=== PATIENT | female | born 1955 | race Caucasian/White ===

== ENCOUNTER → 2016-10-02 | Outpatient (CLI) | payer MEDICARE, OTHER ==
[~2016-10-02] MED LIST: ALBUTEROL0.09 MG/A4 IH; ALBUTEROL0.83 MG/ML IH; ALLEGRA 180MG180 MG PO; ALLEGRA ALLERG180 MG PO; ASPIRIN E.C. 8181 M1 PO; ASPIRIN E.C. 8181 MG PO; ATIVAN 1MG T1 MG/TAB PO; ATIVAN1 MG PO; BENADRYL E2.5 MG/1 M PO; BENADRYL25 M2 PO; CEFACLOR500 M2 PO; COZAAR100 MG PO; COZAAR50 MG PO; DEMADEX 20MG20 M1 PO; DEMADEX 20MG20 MG PO; DESYREL 50MG50 MG PO; DICLOFENAC SOD50 MG PO; DILAUDID 2MG TAB2 MG PO; DIURIL250 MG PO; DULCOLAX STOOL100 MG PO; EFFEXOR XR75 MG/CAP PO; EFFEXOR100 MG PO; GABAPENTIN300 M1 PO; GLIPIZIDE5 MG PO; GLUCOPHAGE1000 MG PO; GLUCOPHAGE500 MG/TAB PO; GRALISE PO; INDERAL 10MG10 MG PO; JANUVIA 100MG100 MG PO; KLONOPIN 1MG1 MG PO; LAMICTAL XR100 MG PO; LAMICTAL150 MG PO; LAMICTAL200 MG PO; LIP PO; LIPITOR 80MG80 MG PO; LIPITOR PO; LORTAB 7.5/5001 TAB PO; MAG-OX 400400 MG PO; MAGNESIUM ELEM300 MG PO; METFORMIN ER500 MG PO; MILK OF MA400 MG/5 M PO; MOBIC15 MG PO; MOTRIN 800800 MG/TAB PO; MULTIPLE VITAMI1 CAP PO; NEURONTIN300 MG/CAP PO; NEXIUM 40MG40 MG PO; NORCO 325 MG-101 TAB PO; NORCO 325 MG-7.1 TAB PO; NORTHYX5 MG PO; ONGLYZA5 MG PO; PRISTIQ 50 MG T50 MG PO; REGLAN 5MG T5 MG/TAB PO; SINGULAIR 110 MG/TAB PO; SYNTHROID 0.10.15 MG PO; SYNTHROID0.1 MG/TAB PO; TAPAZOLE5 MG PO; TOPAMAX 100MG100 M1 PO; TOPAMAX 25MG25 M1 PO; TRAZADONE HYDR100 MG PO; TYLENOL 500MG500 MG PO; ULTRAM50 MG PO; VERAPAMIL PO; VOLTAREN 50MG T50 MG PO; VOLTAREN-XR100 MG PO; XANAX 0.5MG0.5 MG PO; ZANTAC 150MG T150 MG PO; ZETIA 10MG TAB10 MG PO; ZETIA10 MG PO; ZYRTEC 10MG10 MG PO; [UNRECOGNIZED DRUG - OTHER] PO
== END ==
LOC: BHSO 13:04
DX: F33.1 Major depressive disorder, recurrent, moderate (principal)

== ENCOUNTER → 2017-01-16 | Outpatient (CLI) | payer MEDICARE, OTHER | LOC: BHSO 14:35 | DX: F31.74 Bipolar disorder, in full remission, most recent episode manic (principal) ==

== ENCOUNTER → 2017-05-15 | Outpatient (CLI) | payer MEDICARE, OTHER | LOC: BHSO 15:00 | DX: F41.1 Generalized anxiety disorder (principal) ==

== ENCOUNTER → 2017-07-09 | Outpatient (CLI) | payer MEDICARE, OTHER | LOC: BHSO 14:49 | DX: F41.1 Generalized anxiety disorder (principal) ==

== ENCOUNTER 2017-08-24 12:10 | Emergency (ER) | payer MEDICARE, OTHER ==
[~2017-08-24] VITALS: Ht 162.6 cm; Wt 114.0 kg
[2017-08-24 12:14] VITALS: TEMP 98.7
[2017-08-24 12:44] LABS: BASO # 0.1 (0.0-0.2); EOS # 0.2 (0.0-0.7); EOS % 4.7 % (0-4.0); GRAN # 2.3 (1.4-6.5); GRAN % 45.8 % (42.2-75.2); HEMATOCRIT 43.5 % (37.0-47.0); HEMOGLOBIN 13.8 g/dl (12.5-16.0); LYMPH # 1.8 (1.2-3.4); LYMPH % 36.1 % (20.0-51.0); MEAN CELL VOLUME 93 fl (80.0-100.0); MEAN CORPUSCULAR HEMOGLOBIN 29 pg (27.0-31.0); MEAN CORPUSCULAR HGB CONC 32 g/dl (33.0-37.0); MONO # 0.6 (0.1-0.6); MONO % 12.2 % (1.7-9.3); PLATELET COUNT 176 K/mm3 (130-400); REDCELL DISTRIBUTION WIDTH-CV 14.3 % (11.5-14.5)
[2017-08-24 12:56] LABS: ALANINE AMINOTRANSFERASE 32 U/L (9-52); ALBUMIN 4.1 gm/dL (3.5-5.0); ALKALINE PHOSPHATASE 119 U/L (50-136); ANION GAP 10 mmol/L (7-16); AST,SGOT 26 U/L (15-37); BILIRUBIN,TOTAL 0.3 mg/dL (0.0-1.0); BLOOD UREA NITROGEN 18 mg/dL (7-17); CALCIUM 9.4 mg/dL (8.4-10.2); CARBON DIOXIDE 25 mmol/L (22-30); CHLORIDE 104 mmol/L (98-107); GLUCOSE 162 mg/dL (74-106); SODIUM 139 mmol/L (137-145); TOTAL PROTEIN 7.1 gm/dL (6.4-8.2)
[2017-08-24] MEDS ORDERED: SYNTHROID0.2 MG/TAB PO (12:56)
[2017-08-24 12:57] LABS: INR 0.9 (0.8-3.0); PROTHROMBIN TIME 10.7 SECONDS (9.7-12.8)
[2017-08-24 12:59] LABS: PARTIAL THROMBOPLASTIN TIME 28.1 SECONDS (26.0-37.0)
[2017-08-24 13:06] LABS: TROPONIN-I < 0.012 ng/mL (0.000-0.034)
[2017-08-24 13:23] LABS: COLLECTION METHOD CLEAN CATCH
[2017-08-24 13:30] LABS: PH 6 (5-8); SQUAMOUS EPITHELIAL 0-2 /hpf; URINE APPEARANCE Clear; URINE BACTERIA None Seen /hpf; URINE BILIRUBIN Negative (NEGATIVE); URINE BLOOD Negative (NEGATIVE); URINE COLOR Yellow; URINE GLUCOSE Negative (NEGATIVE); URINE KETONE Negative (NEGATIVE); URINE LEUKOCYTE ESTERASE Negative (NEGATIVE); URINE NITRATE Negative (NEGATIVE); URINE PROTEIN(semi-quant) Negative (NEGATIVE); URINE RBC 0-2 /hpf; URINE UROBILINOGEN Negative (NEGATIVE)
[2017-08-24 13:41] LABS: TRICYCLIC ANTIDEPRESS URINE POSITIVE
[2017-08-24 16:09] VITALS: BP 109/75; PULSE 75
== END 2017-08-24 16:10 | disposition short-term general hospital (02) ==
LOC: COL.ER 12:10
PROVIDERS: Family Medicine
DX: I63.9 Cerebral infarction, unspecified (principal); G81.91 Hemiplegia, unspecified affecting right dominant side; R47.01 Aphasia; F17.210 Nicotine dependence, cigarettes, uncomplicated; Z86.73 Personal history of transient ischemic attack (TIA), and cerebral infarction without residual deficits; I10 Essential (primary) hypertension; E78.1 Pure hyperglyceridemia; E11.9 Type 2 diabetes mellitus without complications; J45.909 Unspecified asthma, uncomplicated; E89.0 Postprocedural hypothyroidism; R06.83 Snoring; R40.0 Somnolence
CPT/HCPCS: J2997

== ENCOUNTER 2017-11-14 14:00 | Outpatient (RCR) | payer MEDICARE, OTHER ==
[~2017-11-14 14:00] MED LIST changes: +SYNTHROID0.2 MG/TAB PO
== END 2017-12-10 | disposition home or self-care (01) ==
LOC: MKS.ESL.PT
DX: I69.322 Dysarthria following cerebral infarction (principal); R47.81 Slurred speech; R48.8 Other symbolic dysfunctions; F17.200 Nicotine dependence, unspecified, uncomplicated
CPT/HCPCS: G8990-GO; G8991-GO; G8992-GO; G9168-GN; G9169-GN

== ENCOUNTER → 2017-12-08 | Outpatient (CLI) | payer MEDICARE, OTHER | LOC: BHSO 13:10 | DX: F33.1 Major depressive disorder, recurrent, moderate (principal) | CPT/HCPCS: G0463 ==

== ENCOUNTER → 2018-01-23 | Outpatient (CLI) | payer MEDICARE, OTHER | LOC: BHSO 13:33 | DX: F33.41 Major depressive disorder, recurrent, in partial remission (principal) | CPT/HCPCS: G0463 ==

== ENCOUNTER → 2018-04-22 | Outpatient (CLI) | payer MEDICARE, OTHER | LOC: BHSO 13:41 | DX: F33.1 Major depressive disorder, recurrent, moderate (principal) | CPT/HCPCS: G0463 ==

== ENCOUNTER → 2018-04-27 | Outpatient (CLI) | payer MEDICARE, OTHER | LOC: COL.RAD 12:50 | DX: N20.0 Calculus of kidney (principal) | CPT/HCPCS: Q9967 ==

== ENCOUNTER → 2018-07-09 | Outpatient (CLI) | payer MEDICARE, OTHER | LOC: BHSO 14:20 | DX: F33.41 Major depressive disorder, recurrent, in partial remission (principal) | CPT/HCPCS: G0463 ==

== ENCOUNTER → 2019-04-06 | Outpatient (CLI) | payer MEDICARE, OTHER | LOC: BHSO 10:00 | DX: F33.41 Major depressive disorder, recurrent, in partial remission (principal) | CPT/HCPCS: G0463 ==

== ENCOUNTER → 2020-02-22 | Outpatient (CLI) | payer MEDICARE, OTHER | LOC: ZCOL.LAB 16:36 | DX: U07.1 COVID-19 (principal) ==

== ENCOUNTER 2020-12-15 07:55 | Outpatient (CLI) | payer MEDICARE, OTHER ==
[2020-12-15] VITALS (9 sets, daily range): BP systolic 100–166; BP diastolic 67–84; PULSE 49–62; TEMP 98.5
[~2020-12-15] VITALS: Ht 162.7 cm; Wt 139.1 kg
[2020-12-15] MEDS ORDERED: PRIL40 PO (08:43)
[2020-12-15] MEDS ORDERED: PLAVIX 75MG TAB75 MG PO (08:44)
[2020-12-15] MEDS ORDERED: ATIVAN 1MG T1 MG/TAB PO (08:44)
[2020-12-15] MEDS ORDERED: ZOLOFT 100MG100 MG PO (08:45)
[2020-12-15] MEDS ORDERED: AMARYL4 MG PO (08:46)
[2020-12-15] MEDS ORDERED: COZAAR 50MG50 MG/TAB PO (08:47)
[2020-12-15] MEDS ORDERED: SYNTHROID0.175 MG PO (08:47)
[2020-12-15] MEDS ORDERED: LOPRESSOR 550 MG/TAB PO (08:48)
[2020-12-15] MEDS ORDERED: ALDACTONE 25MG25 M1 PO (08:48)
[2020-12-15] MEDS ORDERED: XYZAL5 MG PO (08:49)
[2020-12-15] MEDS ORDERED: SINGULAIR 110 MG/TAB PO (08:49)
[2020-12-15] MEDS ORDERED: GLUCOPHAGE500 MG/TAB PO (08:50)
[2020-12-15] MEDS ORDERED: LIPITOR 80MG80 MG PO (08:50)
[2020-12-15] MEDS ORDERED: MAG-OX 400400 MG/TAB PO (08:51)
[2020-12-15] MEDS ORDERED: ASPIRIN 81M81 MG/TA2 PO (08:51)
[2020-12-15] MEDS ORDERED: MOTRIN 800800 MG/TAB PO (08:52)
[2020-12-15] MEDS ORDERED: PREDNISONE20 MG PO (08:53)
[2020-12-15] MEDS ORDERED: ZITHROMAX 250M250 MG PO (08:53)
[2020-12-15] MEDS ORDERED: TEMOVATE60CR TOP (08:54)
--- NOTE | 2020-12-15 10:00 | NUR ---
Report from Holly HYATT. 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 2 dressings noted to left chest CD&I. VSS.
--- NOTE | 2020-12-15 12:00 | NUR ---
INT discontinued intact. Discharge instructions given. Trasferred to private car by jigar
== END 2020-12-15 12:00 | disposition home or self-care (01) ==
LOC: COL.CAR 07:55
DX: Z45.09 Encounter for adjustment and management of other cardiac device (principal); I10 Essential (primary) hypertension; Z86.73 Personal history of transient ischemic attack (TIA), and cerebral infarction without residual deficits; Z86.16 Personal history of COVID-19
CPT/HCPCS: C1764; J2250; J3010; J3370; J7050

== ENCOUNTER → 2021-01-23 | Outpatient (CLI) | payer MEDICARE ==
[~2021-01-23] MED LIST changes: +ALDACTONE 25MG25 M1 PO; +AMARYL4 MG PO; +ASPIRIN 81M81 MG/TA2 PO; +COZAAR 50MG50 MG/TAB PO; +LOPRESSOR 550 MG/TAB PO; +MAG-OX 400400 MG/TAB PO; +PLAVIX 75MG TAB75 MG PO; +PREDNISONE20 MG PO; +PRIL40 PO; +SYNTHROID0.175 MG PO; +TEMOVATE60CR TOP; +XYZAL5 MG PO; +ZITHROMAX 250M250 MG PO; +ZOLOFT 100MG100 MG PO
== END ==
LOC: COL.RAD 13:42
DX: M48.061 Spinal stenosis, lumbar region without neurogenic claudication (principal); M47.816 Spondylosis without myelopathy or radiculopathy, lumbar region

== ENCOUNTER 2021-04-06 10:40 | Day surgery (SDC) | payer MEDICARE ==
[~2021-04-06] VITALS: Ht 162.6 cm; Wt 133.5 kg
[2021-04-06] MEDS ORDERED: ZYRTEC 10MG10 MG PO (11:50)
[2021-04-06 11:53] VITALS: BP 125/80; PULSE 60; TEMP 97.3
[2021-04-06 13:40] VITALS: BP 115/56; PULSE 61; TEMP 97
--- NOTE | 2021-04-06 13:40 | NUR ---
1340 PATIENT TRANSPORTED PER CART FROM GI SUITE TO [facility] ACCOMPANIED BY FREDA RN. PATIENT AMBULATED FROM CART TO CHAIR WITH 2 ASSIST. SLOW STEADY GAIT. MONITORS APPLIED. VITAL SIGNS PROCEDURE. VERBAL REPORT RECEIVED. PATIENT TALKING WITH STAFF. 1400 VITAL SIGNS WILL BP-94/53. DAUGHTER IN ROOM. PATIENT DENIES LIGHTHEADEDNESS. DENIES PAIN. IV FLUIDS INFUSING. 1410 BLOOD PRESSURE IMPROVING. PATIENT DRINKS AND EATS WITHOUT PROBLEMS. 1415 VSS. SPEAKS WITH PATIENT AND DAUGHTER. 1420 VSS ON ROOM AIR. PATIENT AND DAUGHTER TALKING. IV DC'D WITH CATHETER TIP INTACT. PRESSURE AND BANDAGE APPLIED. DISCHARGE INSTRUCTIONS GIVEN VERBAL AND DISCHARGE PACKET PROVIDED. QUESTIONS ANSWERED AND PATIENT AND DAUGHTER VOICED UNDERSTANDING. PATIENT USES RESTROOM AND CHANGES INTO STREET CLOTHES. 1436 PATIENT DISCHARGED PER WHEEL CHAIR TO [facility] ACCOMPANIED BY DANA RN.
[2021-04-06 13:45] VITALS: BP 103/54; PULSE 58
[2021-04-06 14:00] VITALS: BP 94/53; PULSE 59
[2021-04-06 14:10] VITALS: BP 104/56; PULSE 58
[2021-04-06 14:20] VITALS: BP 108/48; PULSE 57
== END 2021-04-06 14:36 | disposition home or self-care (01) ==
LOC: SDCO 10:40
DX: Z12.11 Encounter for screening for malignant neoplasm of colon (principal); K21.00 Gastro-esophageal reflux disease with esophagitis, without bleeding; K29.30 Chronic superficial gastritis without bleeding; K57.30 Diverticulosis of large intestine without perforation or abscess without bleeding; Z79.82 Long term (current) use of aspirin; Z79.891 Long term (current) use of opiate analgesic; Z79.01 Long term (current) use of anticoagulants; Z79.84 Long term (current) use of oral hypoglycemic drugs; E78.00 Pure hypercholesterolemia, unspecified; I10 Essential (primary) hypertension; E03.9 Hypothyroidism, unspecified; Z86.73 Personal history of transient ischemic attack (TIA), and cerebral infarction without residual deficits; Z79.899 Other long term (current) drug therapy; Z87.891 Personal history of nicotine dependence
CPT/HCPCS: J2704; J7030

== ENCOUNTER → 2022-05-24 | Outpatient (CLI) | payer OTHER | LOC: COL.RAD 14:00 | DX: M47.816 Spondylosis without myelopathy or radiculopathy, lumbar region (principal); M48.061 Spinal stenosis, lumbar region without neurogenic claudication ==

== ENCOUNTER → 2022-09-10 | Outpatient (CLI) | payer MEDICARE ==
[~2022-09-10] MED LIST changes: +CEFTIN500 MG PO; +OXYGEN NASAL.CANN; +PREDNISONE10 MG PO; +TAMIFLU30 MG PO; +TESSALON P100 MG/CAP PO
== END ==
LOC: MHCPAIN 12:59
DX: M53.3 Sacrococcygeal disorders, not elsewhere classified (principal); M54.50 Low back pain, unspecified; M54.2 Cervicalgia; M47.896 Other spondylosis, lumbar region; M48.02 Spinal stenosis, cervical region; M13.88 Other specified arthritis, other site; M47.812 Spondylosis without myelopathy or radiculopathy, cervical region
CPT/HCPCS: G0463

== ENCOUNTER → 2022-09-23 | Outpatient (CLI) | payer MEDICARE | LOC: MHCPAIN 13:00 | DX: M54.16 Radiculopathy, lumbar region (principal); M47.817 Spondylosis without myelopathy or radiculopathy, lumbosacral region; M53.3 Sacrococcygeal disorders, not elsewhere classified | CPT/HCPCS: J1100; Q9967 ==

== ENCOUNTER → 2022-10-16 | Outpatient (CLI) | payer MEDICARE | LOC: MHCPAIN 15:18 | DX: M54.50 Low back pain, unspecified (principal); M48.02 Spinal stenosis, cervical region; M54.16 Radiculopathy, lumbar region; M13.88 Other specified arthritis, other site; M54.2 Cervicalgia | CPT/HCPCS: G0463 ==

== ENCOUNTER 2023-04-09 08:51 | Outpatient (RCR) | payer MEDICARE | END 2023-04-19 | disposition home or self-care (01) | LOC: MKS.ESL.PT | DX: M48.061 Spinal stenosis, lumbar region without neurogenic claudication (principal); M47.816 Spondylosis without myelopathy or radiculopathy, lumbar region ==

== ENCOUNTER → 2023-04-24 | Outpatient (CLI) | payer MEDICARE | LOC: MHCPAIN 09:16 | DX: M47.812 Spondylosis without myelopathy or radiculopathy, cervical region (principal); M54.12 Radiculopathy, cervical region | CPT/HCPCS: J0461; J1100; Q9967 ==

== ENCOUNTER 2023-06-16 10:45 | Outpatient (RCR) | payer MEDICARE | END 2023-06-19 | disposition home or self-care (01) | LOC: MKS.ESL.PT | DX: M54.50 Low back pain, unspecified (principal); M54.2 Cervicalgia ==

== ENCOUNTER → 2023-08-11 | Outpatient (CLI) | payer MEDICARE | LOC: MHCPAIN 06-16 08:42 | DX: M47.816 Spondylosis without myelopathy or radiculopathy, lumbar region (principal) | CPT/HCPCS: J0665 ==

== ENCOUNTER → 2024-03-08 | Outpatient (CLI) | payer MEDICARE ==
[~2024-03-08] MED LIST changes: +Iohexol 300 - 10 ML VIAL ONE; +Lidocaine PF 1% (10 MG/ML) 5 ML VIAL ONE; +Triamcinolone 40 MG/ML 1 ML VIAL ONE
== END ==
LOC: MHCPAIN 11:50
DX: M54.50 Low back pain, unspecified (principal); M48.061 Spinal stenosis, lumbar region without neurogenic claudication; M53.3 Sacrococcygeal disorders, not elsewhere classified; G89.29 Other chronic pain
CPT/HCPCS: G0260; J3301; Q9967